=== PATIENT | female | born 1980 | race Caucasian/White ===

== ENCOUNTER 2018-02-10 10:09 | Emergency (ER) | payer BC, OTHER ==
[~2018-02-10] VITALS: Ht 152.4 cm; Wt 77.1 kg
[2018-02-10] MEDS ORDERED: MECLIZINE HCL 12.5 MG TABLET PO ONE (11:30)
[2018-02-10] MEDS ORDERED: MECLIZINE HCL 25 MG TABLET ONE ×2 (11:37→11:39)
--- NOTE | 2018-02-10 12:46 | NUR ---
Patient discharged to home in stable condition. Written and verbal after care instructions given. Patient verbalizes understanding of instruction.
[2018-02-10 12:47] VITALS: BP 122/88
== END 2018-02-10 12:47 | disposition home or self-care (01) ==
LOC: ER 10:10
DX: H81.10 Benign paroxysmal vertigo, unspecified ear (principal); F10.10 Alcohol abuse, uncomplicated
CPT/HCPCS: 93005; 99283; A4606; J8597; Z7610

== ENCOUNTER 2021-02-19 09:23 | Emergency (ER) | payer BC, OTHER ==
[~2021-02-19] VITALS: Ht 152.4 cm; Wt 83.9 kg
--- NOTE | 2021-02-19 09:44 | NUR ---
EPIGASTRIC PAIN W/ NAUSEA SINCE AM AND C/O INTERMITENT CHEST PAIN X2 DAYS. RATES PAIN 8/10. IN ROOM AIR AN DENIES SOB. RESPIRATION REGULAR AND UNLABORED. ATTAHCED ON A MONITOR. WILL CONTINUE TO MONITOR THE PATIENT.
[2021-02-19] MEDS ORDERED: FAMOTIDINE (20 MG) 20 MG TABLET ONE (10:10)
[2021-02-19] MEDS ORDERED: FAMOTIDINE (20 MG) 20 MG TABLET PO ONE (10:30)
[2021-02-19 10:53] LABS: BASOPHILS # (AUTO) 0.1 /CMM (0.0-0.2); BASOPHILS % (AUTO) 1.1 % (0.0-2.0); EOSINOPHILS % (AUTO) 1.3 % (0.0-6.0); HEMATOCRIT 40 % (33-45); HEMOGLOBIN 13.2 g/dL (11.5-14.8); LYMPHOCYTES # (AUTO) 1.8 /CMM (0.8-4.8); LYMPHOCYTES % (AUTO) 22.1 % (20.0-44.0); MEAN CORPUSCULAR HGB CONC 33 g/dl (31.0-36.0); MEAN CORPUSCULAR VOLUME 91 fL (82-100); MONOCYTES # (AUTO) 0.7 /CMM (0.1-1.30); MONOCYTES % (AUTO) 8.4 % (2.0-12.0); NEUTROPHILS # (AUTO) 5.4 /CMM (1.8-8.9); NEUTROPHILS % (AUTO) 67.1 % (43.0-81.0); PLATELET COUNT (AUTO) 365 /CMM (150-450); RED BLOOD CELL COUNT(AUTO) 4.35 MIL/uL (4.0-5.2); WHITE BLOOD COUNT (AUTO) 8.1 K/uL (4.3-11.0)
[2021-02-19 11:07] LABS: ALANINE AMINOTRANSFERASE 19 U/L (12-78); ALBUMIN 3.5 g/dL (3.4-5.0); ALKALINE PHOSPHATASE 41 U/L (46-116); ASPARTATE AMINOTRANSFERASE 12 U/L (15-37); BILIRUBIN,TOTAL 0.2 mg/dL (0.2-1.0); CALCIUM, SERUM 9.4 mg/dL (8.5-10.1); CARBON DIOXIDE 25 mmol/L (21-32); CHLORIDE 107 mmol/L (98-107); CREATININE 0.9 mg/dL (0.6-1.3); GLUCOSE 89 mg/dL (74-106); POTASSIUM 4.6 mmol/L (3.5-5.1); SODIUM SERUM 141 mmol/L (136-145); TOTAL PROTEIN, SERUM 6.8 g/dL (6.4-8.2); UREA NITROGEN, BLOOD 17 mg/dL (7-18)
[2021-02-19] MEDS ORDERED: LIDOCAINE VISCOUS 2% UD 15 ML UDC ONE (12:28)
[2021-02-19] MEDS ORDERED: MAG HYDROX/AL HYDROX/SIMETH 30 ML UDC ONE (12:28)
[2021-02-19] MEDS ORDERED: LIDOCAINE VISCOUS 2% UD 15 ML UDC MM ONE (12:30)
[2021-02-19] MEDS ORDERED: MAG HYDROX/AL HYDROX/SIMETH 30 ML UDC PO ONE (12:30)
[2021-02-19] MEDS ORDERED: FAMO20TA8 PO (13:41)
[2021-02-19 14:08] VITALS: BP 106/57
--- NOTE | 2021-02-19 14:08 | NUR ---
Patient discharged to home in stable condition. Written and verbal after care instructions given. Patient verbalizes understanding of instruction.IV removed. Catheter intact and site benign. Pressure and 4x4 applied to site. No bleeding noted. Pt ambulatory with a steady gait
== END 2021-02-19 14:08 | disposition home or self-care (01) ==
LOC: ER 09:27
DX: R07.89 Other chest pain (principal); R10.13 Epigastric pain; Z79.899 Other long term (current) drug therapy
CPT/HCPCS: 36415; 71045; 80048; 80076; 84484 ×2; 85025; 93005 ×2; 99285; A6253